=== PATIENT | male | born 1995 | race Caucasian/White ===

== ENCOUNTER 2018-01-02 09:04 | Emergency (ER) | payer OTHER ==
[2018-01-02] MEDS: NAPROXEN 250 MG TAB PO (09:44)
== END 2018-01-02 09:50 | disposition home or self-care (01) ==
LOC: M ED 09:04
DX: S76.312A Strain of muscle, fascia and tendon of the posterior muscle group at thigh level, left thigh, initial encounter (principal); X50.9XXA Other and unspecified overexertion or strenuous movements or postures, initial encounter; Y92.410 Unspecified street and highway as the place of occurrence of the external cause; F17.200 Nicotine dependence, unspecified, uncomplicated
CPT/HCPCS: 99282